=== PATIENT | male | born 1970 | race Caucasian/White ===

== ENCOUNTER 2017-09-26 17:07 | Emergency (ER) | payer SELFPAY ==
[~2017-09-26] VITALS: Ht 160 cm; Wt 73.6 kg
[2017-09-26 17:18] VITALS: Ht 160 cm; Wt 73.6 kg
--- NOTE | 2017-09-26 20:05 | ERD ---
ER Documentation Chief Complaint Chief Complaint back pain all week HPI 47-year-old male presents here to emergency department for complaints of right upper back pain radiating to the right lower back and right lower leg that started 1 week ago, patient describes the pain as sharp pain, 6/10 scale, worse upon movement. Patient did not take any medications to help with symptoms. Patient denies any incontinence. Patient denies any direct trauma in affected area. ROS All systems reviewed and are negative except as per history of present illness. Medications Home Meds Reported Medications [none] Unknown Strength No Conflict Check 09/26/17 Physical Exam Vitals Vital Signs Date Time Temp Pulse Resp B/P Pulse Ox O2 Delivery O2 Flow Rate FiO2 09/26/17 17:18 98.0 65 18 126/76 98 Physical Exam GENERAL: The patient is well developed and appropriate for usual state of health, in no apparent distress. CHEST: Clear to auscultation bilaterally. There are no rales, wheezes or rhonchi. HEART: Regular rate and rhythm. No murmurs, clicks, rubs or gallops. No S3 or S4. ABDOMEN: Soft, nontender and nondistended. Good bowel sounds. No rebound or guarding. No gross peritonitis. No gross organomegaly or masses. No Santos sign or McBurney point tenderness. BACK: No midline or flank tenderness. Spasms noted in the right paraspinal aspect of the thoracic and lumbar spine, able to do full range of motion without any restriction. EXTREMITIES: Equal pulses bilaterally. There is no peripheral clubbing, cyanosis or edema. No focal swelling or erythema. Full range of motion. Grossly neurovascularly intact. NEURO: Alert and oriented. Cranial nerves 2-12 intact. Motor strength in all 4 extremities with 5/5 strength. Sensation grossly intact. Normal speech and gait. SKIN: There is no apparent rash or petechia. The skin is warm and dry. HEMATOLOGIC AND LYMPHATIC: There is no evidence of excessive bruising or lymphedema. No gross cervical, axillary, or inguinal lymphadenopathy. Results 24 hrs Patient was called several times of the waiting area for a CT scan of the lower back and thoracic spine, patient is unable to be found, patient eloped. Patient was tried to be contacted in the phone, unable to contact. Prior to patient eloping, patient was evaluated and was stable. Procedures/MDM Medical Decision Making: Patient's pain is most likely consistent with a back strain. There is no suspicion for neurovascular compromise. Patient has intact sensation and circulation of the affected extremity and distal extremities. No incontinence, no suspicion for cauda equina syndrome, no saddle anesthesia, no symptoms of any acute bacterial infection, no symptoms of any perirectal abscesses, pilonidal cyst.There is low suspicion for septic arthritis. Patient does not have any fever. No symptoms of any aortic dissection or aortic aneurysm. Radiology exam was not done since patient eloped. Disposition: Eloped. Patient was advised to avoid heavy lifting , apply warm compresses on affected area. Patient was advised that if symptoms are worse, numbness, tingling, high fever, unable to move joint, worsening symptoms, to return to emergency department immediately. Otherwise, patient is advised to follow up with the primary care doctor in 5-7 days for reevaluation of symptoms. Disclaimer: Inadvertent spelling and grammatical errors are likely due to EHR/ dictation software use and do not reflect on the overall quality of patient care. Also, please note that the electronic time recorded on this note does not necessarily reflect the actual time of the patient encounter. Departure Diagnosis: Primary Impression: Back pain Back pain location: low back pain Chronicity: acute Back pain laterality: bilateral Sciatica presence: without sciatica Qualified Code: M54.5 - Acute bilateral low back pain without sciatica Condition: Stable DANO ALFREDO NP Sep 26, 2017 20:05
== END 2017-09-27 03:54 | disposition left against medical advice (07) ==
LOC: FTE 17:07
DX: M54.5 Low back pain (principal)
CPT/HCPCS: 99282

== ENCOUNTER 2018-11-06 10:16 | Emergency (ER) | payer MEDICAID ==
[~2018-11-06] VITALS: Ht 165.1 cm; Wt 93.3 kg
[2018-11-06 10:20] VITALS: BP 119/69; PULSE 54; RESP 18; Ht 165.1 cm; Wt 93.3 kg
[2018-11-06] MEDS ORDERED: KETOROLAC 60 MG INJ IM STA (11:23)
[2018-11-06] MEDS ORDERED: PRED20TA PO (11:26)
[2018-11-06] MEDS ORDERED: NAPR-985 PO (11:26)
[2018-11-06] MEDS ORDERED: CYCL10TA7 PO (11:26)
[2018-11-06] MEDS ORDERED: METHYLPREDNISOLONE 125 MG INJ IM ONE (11:30)
[2018-11-06] MEDS ORDERED: CYCLOBENZAPRINE 10 MG TAB PO ONE (11:30)
--- NOTE | 2018-11-06 11:30 | ERD ---
ER Documentation Chief Complaint Chief Complaint right back pain today, no injury HPI This is a 48-year-old male with a history of chronic low back pain with sciatica who presents ED complaining of flareup of low back pain that started today. Patient denies any injury or trauma to account for flareup of back pain. States that back pain is in the right low back and radiates down the right posterior leg. Denies tingling, numbness, lack sensation, bowel/bladder incontinence, saddle paresthesias, dysuria, hematuria and other symptoms. No fever no chills. No history of IV drug abuse ROS All systems reviewed and are negative except as per history of present illness. Medications Home Meds Active Scripts Prednisone* (Prednisone*) 20 Mg Tab, 60 MG PO DAILY for 4 Days, TAB Prov:EMILIANO CALVILLO PA-C 11/06/18 Naproxen* (Naprosyn*) 500 Mg Tablet, 500 MG PO BID PRN for PAIN AND/OR INFLAMMATION, #30 TAB Prov:EMILIANO CALVILLO PA-C 11/06/18 Cyclobenzaprine Hcl* (Cyclobenzaprine Hcl*) 10 Mg Tablet, 10 MG PO TID, #15 TAB Prov:EMILIANO CALVILLO PA-C 11/06/18 Reported Medications [none] Unknown Strength No Conflict Check 09/26/17 PMhx/Soc Hx Alcohol Use: No Hx Substance Use: No Hx Tobacco Use: No FmHx Family History: No diabetes Physical Exam Vitals Vital Signs Date Temp Pulse Resp B/P (MAP) Pulse Ox O2 O2 Flow FiO2 Time Delivery Rate 11/06/18 96.7 54 18 119/69 99 10:20 (86) Physical Exam Const: No acute distress Head: Atraumatic Eyes: Normal Conjunctiva ENT: Normal External Ears, Nose and Mouth. Neck: Full range of motion. No meningismus. Resp: Clear to auscultation bilaterally Cardio: Regular rate and rhythm, no murmurs Back: No thoracic or lumbar midline tenderness, there is moderate tenderness palpation along the paravertebral muscles in the right low back, positive straight leg raise on right side, no step-off deformities Ext: No cyanosis, or edema Neur: Awake and alert Psych: Normal Mood and Affect Results 24 hrs Current Medications Medications Dose Sig/Davis Start Time Status Last (Trade) Ordered Route PRN Stop Time Admin Dose Reason Admin Ketorolac 60 mg ONCE STAT 1/8/19 DC Tromethamine IM 11:23 11/06/18 (Toradol) 11:24 125 mg ONCE ONCE 11/06/18 Methylprednis IM 11:30 11/06/18 olone Sodium 11:31 Succinate (Solu-Medrol) 20 mg ONCE ONCE 11/06/18 Cyclobenzapri PO 11:30 11/06/18 ne HCl 11:31 (Flexeril) Procedures/MDM ER COURSE: The patient was given Solu-Medrol, naproxen, Toradol The medication was well tolerated and the patient reports improvement in symptoms. The patient was stable throughout ED course. I kept the patient and/or family informed of laboratory and diagnostic imaging results throughout the emergency room course. The patient was promptly evaluated and a treatment plan was devised based on H&P and other data. This plan was discussed with the patient who agreed and had no further questions or concerns prior to discharge. MEDICAL DECISION MAKIN-year-old male presents ED with flareup of low back pain with radiation down the right posterior leg times 1 day. Patient has a history of sciatica. There is a positive straight leg raise on the right side. History and physical examination other data not consistent with processing including cauda equina syndrome, cord compression, infiltrative etiology, infectious etiology, epidural abscess, fracture, obstructive pyelonephritis, abdominal aortic aneurysm. Vitals are stable and patient can be managed outpatient with close follow-up. Advised patient to follow up with primary care in the next 48 hours. return to ED with any worsening symptoms DISPOSITION PLAN: We discussed follow up with the patient's primary care doctor within 24 to 48 hours. Patient counseled regarding my diagnostic impression and care plan. Prior to discharge all questions answered. Pt agrees with treatment plan and understands strict return precautions. Precautionary instructions provided including instructions to return to the ER if not improving or for any worsening or changing symptoms or concerns. SPECIALIST FOLLOW UP RECOMMENDED: None Patient has been advised to follow up with primary care in 1-2 days. Disclaimer: Inadvertent spelling and grammatical errors are likely due to EHR/dictation software use and do not reflect on the overall quality of patient care. Also, please note that the electronic time recorded on this note does not necessarily reflect the actual time of the patient encounter. Departure Diagnosis: Primary Impression: Low back pain Chronicity: acute Back pain laterality: right Sciatica presence: with sciatica Sciatica laterality: sciatica of right side Qualified Codes: M54.41 - Lumbago with sciatica, right side Condition: Stable Patient Instructions: Back Pain W/ Sciatica Referrals: [facility] YOU HAVE RECEIVED A MEDICAL SCREENING EXAM AND THE RESULTS INDICATE THAT YOU DO NOT HAVE A CONDITION THAT REQUIRES URGENT TREATMENT IN THE EMERGENCY DEPARTMENT. FURTHER EVALUATION AND TREATMENT OF YOUR CONDITION CAN WAIT UNTIL YOU ARE SEEN IN YOUR DOCTORS OFFICE WITHIN THE NEXT 1-2 DAYS. IT IS YOUR RESPONSIBILITY TO MAKE AN APPOINTMENT FOR FOLOW-UP CARE. IF YOU HAVE A PRIMARY DOCTOR --you should call your primary doctor and schedule an appointment IF YOU DO NOT HAVE A PRIMARY DOCTOR YOU CAN CALL OUR PHYSICIAN REFERRAL HOTLINE AT IF YOU CAN NOT AFFORD TO SEE A PHYSICIAN YOU CAN CHOSE FROM THE FOLLOWING [facility] [address] [place] [address] [facility] [address] [place] [facility] [address] [facility] [address] [facility]. [facility] [address] [facility] [facility]. [address] Additional Instructions: Paciente aconseja volver a Departamento de urgencias inmediatamente para sntomas nuevos o que empeoran . Paciente aconseja posteriores con el PCP en 1-2 [place] . Paciente verbaliza la comprehensin y est de acuerdo con el tratamiento y el curso de accin. Si el paciente no tiene ninguna de atencin primaria pueden seguir con [facility] [address] [place] [address] o [facility] + [address] [address] EMILIANO CALVILLO PA-C Nov 06, 2018 11:30
== END 2018-11-06 12:00 | disposition home or self-care (01) ==
LOC: FTE 10:16
DX: M54.41 Lumbago with sciatica, right side (principal)
CPT/HCPCS: 96372; J1885; J2930; Z7502; Z7610

== ENCOUNTER 2019-01-30 17:19 | Emergency (ER) | payer MEDICAID ==
[~2019-01-30] VITALS: Ht 165.1 cm; Wt 73.3 kg
[~2019-01-30 17:19] MED LIST: CYCL10TA7 PO; NAPR-985 PO; PRED20TA PO
[2019-01-30 17:56] VITALS: Ht 165.1 cm; Wt 73.3 kg
[2019-01-30] MEDS ORDERED: LIDOCAINE 1% (MPF) 5 ML VIAL INFIL ONE (20:30)
[2019-01-30] MEDS ORDERED: IBUP-1561 PO (21:38)
--- NOTE | 2019-01-30 21:44 | ERD ---
ER Documentation Chief Complaint Chief Complaint BLISTER ON MIDDLE FINGER HPI 48-year-old male presents for a blister over his left middle finger times 2 weeks. He also states he has a growth over the right knee. He has mild tenderness over the left middle finger. Denies any fevers or chills. Denies prior similar symptoms. No significant past medical history ROS All systems reviewed and are negative except as per history of present illness. Medications Home Meds Active Scripts Ibuprofen* (Motrin*) 400 Mg Tab, 400 MG PO Q6H PRN for PAIN AND OR ELEVATED TEMP, #30 TAB Prov:MILVIA KEENAN DO 01/30/19 Prednisone* (Prednisone*) 20 Mg Tab, 60 MG PO DAILY for 4 Days, TAB Prov:EMILIANO CALVILLO PA-C 11/06/18 Naproxen* (Naprosyn*) 500 Mg Tablet, 500 MG PO BID PRN for PAIN AND/OR INFLAMMATION, #30 TAB Prov:EMILIANO CALVILLO PA-C 11/06/18 Cyclobenzaprine Hcl* (Cyclobenzaprine Hcl*) 10 Mg Tablet, 10 MG PO TID, #15 TAB Prov:EMILIANO CALVILLO PA-C 11/06/18 Reported Medications [none] Unknown Strength No Conflict Check 09/26/17 Allergies Allergies: Coded Allergies: No Known Allergy (Unverified , 11/06/18) PMhx/Soc Medical and Surgical Hx: pt denies Medical Hx, pt denies Surgical Hx History of Surgery: No Anesthesia Reaction: No Hx Neurological Disorder: No Hx Respiratory Disorders: No Hx Cardiac Disorders: No Hx Psychiatric Problems: No Hx Miscellaneous Medical Probl: No Hx Alcohol Use: No Hx Substance Use: No Hx Tobacco Use: Yes Smoking Status: Current some day smoker Physical Exam Vitals Vital Signs Date Temp Pulse Resp B/P (MAP) Pulse Ox O2 O2 Flow FiO2 Time Delivery Rate 01/30/19 97.4 56 16 136/91 99 17:56 (106) Physical Exam Const: No acute distress Resp: Clear to auscultation bilaterally Cardio: Regular rate and rhythm, no murmurs, Refills less than 2 seconds in all fingers of the left hand Abd: Soft, non tender, non distended. Normal bowel sounds Skin: No petechiae or rashes Back: No midline or flank tenderness Ext: Left middle finger distal cystic growth noted, there is no underlying erythema. There is underlying fluctuance. Neur: Awake and alert, sensation intact in all fingers of the left hand Psych: Normal Mood and Affect Results 24 hrs Current Medications Medications Dose Sig/Davis Start Time Status Last (Trade) Ordered Route PRN Stop Time Admin Dose Reason Admin Lidocaine 5 ml ONCE ONCE 01/30/19 DC (Xylocaine INFIL 20:30 01/30/19 1% (Mpf)) 20:31 Procedures/MDM Cyst incision and Drainage with irrigation by me: Location: Left middle finger Anesthesia: [Local 1% Lidocaine without epinephrine] Technique: [Irrigated. Disrupted loculations w/ instrumentation] Packing: [None] Complications: [Neurovascularly intact post procedure] 48 hour wound check. Scar minimization instructions given. Patient's skin symptoms have stabilized while they have been evaluated in the department and are appropriate for outpatient care and work up. Exam and w/u not consistent w/ sepsis, deep space infection, or foreign body. Medical Decision Making: Differential diagnosis includes but not limited to pancreatic cyst, sebaceous cyst, abscess, cellulitis Patient appeared well on physical exam. Left middle finger examination consistent with a ganglion cyst ED course: Incision and drainage was done over the cyst, see procedure note above Prescription(s): Patient given prescription for supportive medication(s). Patient advised to follow up with PCP in 1-2 days. Patient advised to return to ED for new or worsening symptoms. Patient stable on discharge from the ED. Disclaimer: Inadvertent spelling and grammatical errors are likely due to EHR/dictation software use and do not reflect on the overall quality of patient care. Also, please note that the electronic time recorded on this note does not necessarily reflect the actual time of the patient encounter. Departure Diagnosis: Primary Impression: Cyst in hand Condition: Fair Patient Instructions: Ganglion Cyst: Hand Referrals: COMM[facility] YOU HAVE RECEIVED A MEDICAL SCREENING EXAM AND THE RESULTS INDICATE THAT YOU DO NOT HAVE A CONDITION THAT REQUIRES URGENT TREATMENT IN THE EMERGENCY DEPARTMENT. FURTHER EVALUATION AND TREATMENT OF YOUR CONDITION CAN WAIT UNTIL YOU ARE SEEN IN YOUR DOCTORS OFFICE WITHIN THE NEXT 1-2 DAYS. IT IS YOUR RESPONSIBILITY TO MAKE AN APPOINTMENT FOR FOLOW-UP CARE. IF YOU HAVE A PRIMARY DOCTOR --you should call your primary doctor and schedule an appointment IF YOU DO NOT HAVE A PRIMARY DOCTOR YOU CAN CALL OUR PHYSICIAN REFERRAL HOTLINE AT IF YOU CAN NOT AFFORD TO SEE A PHYSICIAN YOU CAN CHOSE FROM THE FOLLOWING [facility] [address] [facility] [address] [facility] [facility] [address] [facility] [address] [facility]. [facility] [address] [facility] [facility] [address] Additional Instructions: Call your primary care doctor TOMORROW for an appointment during the next 1-2 days.See the doctor sooner or return here if your condition worsens before your appointment time. MILVIA KEENAN DO Jan 30, 2019 21:44
[2019-01-30 21:46] VITALS: BP 133/82; PULSE 72; RESP 16
== END 2019-01-30 21:49 | disposition home or self-care (01) ==
LOC: FTE 17:19
DX: L72.9 Follicular cyst of the skin and subcutaneous tissue, unspecified (principal)
CPT/HCPCS: 10060; Z7502; Z7610

== ENCOUNTER 2019-03-04 08:05 | Emergency (ER) | payer MEDICAID ==
[~2019-03-04] VITALS: Ht 167.6 cm; Wt 70.0 kg
[~2019-03-04 08:05] MED LIST changes: +IBUP-1561 PO
[2019-03-04 08:09] VITALS: RESP 18; Ht 167.6 cm; Wt 70.0 kg
[2019-03-04] MEDS ORDERED: CEPH-443 PO (08:24)
[2019-03-04] MEDS ORDERED: DIPHTH/TET/ACEL PERTUSS (ADULT) 0.5 ML VIAL IM* ONE (08:30)
[2019-03-04 08:36] VITALS: BP 138/57; PULSE 57
--- NOTE | 2019-03-04 08:37 | ERD ---
ER Documentation Chief Complaint Chief Complaint had left hand lac Wed now the area hurts is swollen tender to touch HPI 49-year-old male presenting with pain to the previous laceration site. She states that he had a laceration after cutting himself with a knife 1 week ago. He did not have sutures placed and healed on its own however he does have some pain surrounding the area with some redness. He is right-hand dominant. Does not recall his last tetanus shot. Denies other medical problems. NKDA. Surgical history denies. Social history denies ROS All systems reviewed and are negative except as per history of present illness. Medications Home Meds Active Scripts Cephalexin* (Keflex*) 500 Mg Capsule, 500 MG PO QID for 7 Days, CAP Prov:LATOYA JACOME PA-C 03/04/19 Ibuprofen* (Motrin*) 400 Mg Tab, 400 MG PO Q6H PRN for PAIN AND OR ELEVATED TEMP, #30 TAB Prov:MILVIA KEENAN DO 01/30/19 Prednisone* (Prednisone*) 20 Mg Tab, 60 MG PO DAILY for 4 Days, TAB Prov:EMILIANO CALVILLO PA-C 11/06/18 Naproxen* (Naprosyn*) 500 Mg Tablet, 500 MG PO BID PRN for PAIN AND/OR INFLAMMATION, #30 TAB Prov:EMILIANO CALVILLO PA-C 11/06/18 Cyclobenzaprine Hcl* (Cyclobenzaprine Hcl*) 10 Mg Tablet, 10 MG PO TID, #15 TAB Prov:EMILIANO CALVILLO PA-C 11/06/18 Reported Medications [none] Unknown Strength No Conflict Check 09/26/17 Allergies Allergies: Coded Allergies: No Known Allergy (Unverified , 11/06/18) PMhx/Soc Medical and Surgical Hx: pt denies Medical Hx, pt denies Surgical Hx History of Surgery: No Anesthesia Reaction: No Hx Neurological Disorder: No Hx Respiratory Disorders: No Hx Cardiac Disorders: No Hx Psychiatric Problems: No Hx Miscellaneous Medical Probl: No Hx Alcohol Use: No Hx Substance Use: No Hx Tobacco Use: Yes Smoking Status: Current every day smoker FmHx Family History: No diabetes, No coronary disease, No other Physical Exam Vitals Vital Signs Date Temp Pulse Resp B/P (MAP) Pulse Ox O2 O2 Flow FiO2 Time Delivery Rate 03/04/19 97.8 79 18 187/86 98 08:09 (119) Physical Exam GENERAL: The patient is well-appearing, well-nourished, in no acute distress CHEST: Clear to auscultation bilaterally. There are no rales, wheezes or rhonchi. HEART: Regular rate and rhythm. No murmurs, clicks, rubs or gallops EXTREMITIES: Equal pulses bilaterally. There is no peripheral clubbing, cyanosis or edema. No focal swelling or erythema. Full range of motion. Grossly neurovascularly intact. SKIN: Healing laceration site with mild surrounding erythema and tenderness to palpation. No fluctuance. No lymphatic streaking. No dehiscence or purulence. Results 24 hrs Current Medications Medications Dose Sig/Davis Start Time Status Last (Trade) Ordered Route PRN Stop Time Admin Dose Reason Admin Diphtheria/ 0.5 ml ONCE ONCE 03/04/19 DC 03/04/19 Tetanus/Acell IM* 08:30 03/04/19 08:29 Pertussis 08:31 (Adacel) Procedures/MDM ER course: Tetanus given ED. MDM: 49-year-old male presenting with pain to the laceration. I will treat patient prophylactically for wound infection. I have low suspicion for cellulitic infection. I have low suspicion for lymphatic infection. Patient is discharged with strict ER precautions and told to follow-up with primary care within 1 to 2 days for close evaluation. All questions answered at discharge Departure Diagnosis: Primary Impression: Skin infection Condition: Stable Patient Instructions: Wound Check, Lac F/U (Infected) Referrals: [facility] YOU HAVE RECEIVED A MEDICAL SCREENING EXAM AND THE RESULTS INDICATE THAT YOU DO NOT HAVE A CONDITION THAT REQUIRES URGENT TREATMENT IN THE EMERGENCY DEPARTMENT. FURTHER EVALUATION AND TREATMENT OF YOUR CONDITION CAN WAIT UNTIL YOU ARE SEEN IN YOUR DOCTORS OFFICE WITHIN THE NEXT 1-2 DAYS. IT IS YOUR RESPONSIBILITY TO MAKE AN APPOINTMENT FOR FOLOW-UP CARE. IF YOU HAVE A PRIMARY DOCTOR --you should call your primary doctor and schedule an appointment IF YOU DO NOT HAVE A PRIMARY DOCTOR YOU CAN CALL OUR PHYSICIAN REFERRAL HOTLINE AT IF YOU CAN NOT AFFORD TO SEE A PHYSICIAN YOU CAN CHOSE FROM THE FOLLOWING [facility] [address] [facility]. [facility] [address] [facility]. [facility] [address] [facility]. [facility] [address] [facility]. [facility] [address] [facility]. [facility]. [address] Additional Instructions: FOLLOW UP WITH YOUR PRIMARY CARE PHYSICIAN TOMORROW.Return to this facility if you are not improving as expected. LATOYA JACOME PA-C March 04, 2019 08:37
== END 2019-03-04 08:37 | disposition home or self-care (01) ==
LOC: FTE 08:05
DX: L08.9 Local infection of the skin and subcutaneous tissue, unspecified (principal); F17.210 Nicotine dependence, cigarettes, uncomplicated; Z23 Encounter for immunization
CPT/HCPCS: 90471; 90715; Z7502

== ENCOUNTER 2019-05-06 08:03 | Emergency (ER) | payer MEDICAID ==
[~2019-05-06] VITALS: Ht 154.9 cm; Wt 73.6 kg
[~2019-05-06 08:03] MED LIST changes: +CEPH-443 PO
[2019-05-06 08:07] VITALS: BP 130/77; PULSE 73; RESP 18; Ht 154.9 cm; Wt 73.6 kg
[2019-05-06] MEDS ORDERED: KETOROLAC 30 MG INJ IM STA (08:18)
[2019-05-06] MEDS ORDERED: CYCL10TA7 PO (08:27)
[2019-05-06] MEDS ORDERED: IBUP-1542 PO (08:27)
[2019-05-06] MEDS ORDERED: CYCLOBENZAPRINE 10 MG TAB PO ONE (08:30)
--- NOTE | 2019-05-06 08:30 | ERD ---
ER Documentation Chief Complaint Chief Complaint lower back pain radiating down legs x1 day HPI 49-year-old male presenting to the ED for lower back pain. Patient suffers from chronic back pain and has a history of sciatica. Patient states he went to lift his granddaughter up yesterday and today woke up with a very stiff back. Patient has been able to pass urine and stool without difficulty and denies any blood in the urine or stool. Patient denies any allergies to medications. Patient states he is received treatment in the past with a chiropractor but states the back pain has still not gotten better. Patient denies fever chills nausea vomiting. ROS All systems reviewed and are negative except as per history of present illness. Medications Home Meds Active Scripts Ibuprofen* (Motrin*) 600 Mg Tab, 600 MG PO Q6, #30 TAB Prov:KRUPA GUAJARDO PA-C 05/06/19 Cyclobenzaprine Hcl* (Cyclobenzaprine Hcl*) 10 Mg Tablet, 10 MG PO TID, #15 TAB Prov:KRUPA GUAJARDO PA-C 05/06/19 Cephalexin* (Keflex*) 500 Mg Capsule, 500 MG PO QID for 7 Days, CAP Prov:LATOYA JACOME PA-C 03/04/19 Ibuprofen* (Motrin*) 400 Mg Tab, 400 MG PO Q6H PRN for PAIN AND OR ELEVATED TEMP, #30 TAB Prov:MILVIA KEENAN DO 01/30/19 Prednisone* (Prednisone*) 20 Mg Tab, 60 MG PO DAILY for 4 Days, TAB Prov:EMILIANO CALVILLO PA-C 11/06/18 Naproxen* (Naprosyn*) 500 Mg Tablet, 500 MG PO BID PRN for PAIN AND/OR INFLAMMATION, #30 TAB Prov:EMILIANO CALVILLO PA-C 11/06/18 Cyclobenzaprine Hcl* (Cyclobenzaprine Hcl*) 10 Mg Tablet, 10 MG PO TID, #15 TAB Prov:EMILIANO CALVILLO PA-C 11/06/18 Reported Medications [none] Unknown Strength No Conflict Check 09/26/17 Allergies Allergies: Coded Allergies: No Known Allergy (Unverified , 11/06/18) PMhx/Soc History of Surgery: No Anesthesia Reaction: No Hx Neurological Disorder: No Hx Respiratory Disorders: No Hx Cardiac Disorders: No Hx Psychiatric Problems: No Hx Miscellaneous Medical Probl: No Hx Alcohol Use: No Hx Substance Use: No Hx Tobacco Use: Yes Smoking Status: Current every day smoker FmHx Family History: No diabetes, No coronary disease, No other Physical Exam Vitals Vital Signs Date Temp Pulse Resp B/P (MAP) Pulse Ox O2 O2 Flow FiO2 Time Delivery Rate 05/06/19 97.5 73 18 130/77 96 08:07 (94) Physical Exam Const: Moderate distress Resp: Clear to auscultation bilaterally Cardio: Regular rate and rhythm, no murmurs Abd: Soft, non tender, non distended. Normal bowel sounds Skin: No petechiae or rashes Back: Muscle spasm noted on palpation to left lower back. No crepitus or deformities felt on palpation no signs of bruising. Ext: Patient has good pulse motor sensation straight leg raise on the left side aggravated the pain in the left lower back. Neur: Awake and alert Psych: Normal Mood and Affect Results 24 hrs Current Medications Medications Dose Sig/Davis Start Time Status Last (Trade) Ordered Route PRN Stop Time Admin Dose Reason Admin Ketorolac 30 mg ONCE STAT 05/06/19 DC 05/06/19 Tromethamine IM 08:18 05/06/19 08:24 (Toradol) 08:19 10 mg ONCE ONCE 05/06/19 05/06/19 Cyclobenzapri PO 08:30 05/06/19 08:23 ne HCl 08:31 (Flexeril) Procedures/MDM Medications given in ER: Toradol Cyclobenzaprine Patient tolerated medication well with no adverse reactions. Patient reported improvement in pain. Medical decision making: Patient's 49-year-old male presented to ED for lower back pain x2 days. Patient has a history of back pain has been seen in the ER for the situation. Patient states he hurt his back lifting up his granddaughter he did not hear a pop he just woke up today and stated that his back felt stiff. Patient is able to ambu late without difficulty but does have pain. Patient denies any numbness or tingling in his groin region and has been able to pass stool and urine with no presence of blood. Physical exam was remarkable for a muscle spasm in his left lower back. Patient was given Toradol injection and cyclobenzaprine in the ED. On reevaluation patient appears to be doing much better I advised the patient that he may need to see an orthopedic if he still having this back pain. Patient agrees and states that he is going to see his primary care doctor this week to see if he can get a referral. At this time I have low suspicion for cauda equine syndrome, spinal fractures, epidural abscess, spinal metastases, osteomyelitis, aortic dissection, ruptured or leaking AA, DJD, sciatica, lumbar strain, muscle spasm, pyelonephritis or nephrolithiasis. Patient was advised if symptoms worsen return to ER immediately otherwise follow-up with your primary care provider in 1 to 2 days regarding this visit. All questions were answered upon discharge and patient is in agreement to the treatment plan. Prescription for home: Cyclobenzaprine Motrin I have discussed with the patient proper use and common side effects to expert with the medication . I advised the patient/family to speak with the pharmacist dispensing the medication to be advised of any potential drug interactions with other medication or supplements they may be taking. Discharge: At this time, patient is stable for discharge and outpatient management. I have instructed the patient to follow-up with his\her primary care physician in 1 to 2 days. I have discussed with the patient the possibility of needing to see a specialist for further work-up and imaging studies if symptoms persist. I have instructed the patient to promptly return to the ER for any new or worsening symptoms including increased pain, fever, nausea, vomiting, weakness or LOC. The patient and\or family expressed understanding of and agreement with this plan. All questions were answered. Home care instructions were provided. Disclaimer: Inadvertent spelling and grammatical errors are likely due to EHR\dictation software use and do not reflect on the overall quality of patient care. Also, please note that the electronic time recorded on the note does not necessarily reflect the actual time of the patient encounter. Departure Diagnosis: Primary Impression: Back pain Back pain location: low back pain Chronicity: chronic Back pain laterality: bilateral Sciatica presence: with sciatica Sciatica laterality: sciatica laterality unspecified Qualified Codes: M54.40 - Lumbago with sciatica, unspecified side; G89.29 - Other chronic pain Condition: Stable Patient Instructions: Back Pain (Acute Or Chronic), Back Pain W/ Sciatica Referrals: RENETTA VALADEZ YOON S MD [facility] YOU HAVE RECEIVED A MEDICAL SCREENING EXAM AND THE RESULTS INDICATE THAT YOU DO NOT HAVE A CONDITION THAT REQUIRES URGENT TREATMENT IN THE EMERGENCY DEPARTMENT. FURTHER EVALUATION AND TREATMENT OF YOUR CONDITION CAN WAIT UNTIL YOU ARE SEEN IN YOUR DOCTORS OFFICE WITHIN THE NEXT 1-2 DAYS. IT IS YOUR RESPONSIBILITY TO MAKE AN APPOINTMENT FOR FOLOW-UP CARE. IF YOU HAVE A PRIMARY DOCTOR --you should call your primary doctor and schedule an appointment IF YOU DO NOT HAVE A PRIMARY DOCTOR YOU CAN CALL OUR PHYSICIAN REFERRAL HOTLINE AT IF YOU CAN NOT AFFORD TO SEE A PHYSICIAN YOU CAN CHOSE FROM THE FOLLOWING [facility] [address] [facility] [address] [facility] [address] [facility] [address] [facility] [address] [facility] [facility] [address] [facility] YOU HAVE RECEIVED A MEDICAL SCREENING EXAM AND THE RESULTS INDICATE THAT YOU DO NOT HAVE A CONDITION THAT REQUIRES URGENT TREATMENT IN THE EMERGENCY DEPARTMENT. FURTHER EVALUATION AND TREATMENT OF YOUR CONDITION CAN WAIT UNTIL YOU ARE SEEN IN YOUR DOCTORS OFFICE WITHIN THE NEXT 1-2 DAYS. IT IS YOUR RESPONSIBILITY TO MAKE AN APPOINTMENT FOR FOLOW-UP CARE. IF YOU HAVE A PRIMARY DOCTOR --you should call your primary doctor and schedule and appointment IF YOU DO NOT HAVE A PRIMARY DOCTOR YOU CAN CALL OUR PHYSICIAN REFERRAL HOTLINE AT . IF YOU CAN NOT AFFORD TO SEE A PHYSICIAN YOU CAN CHOSE FROM THE FOLLOWING [facility]: [facility] [address] [place] [address] [facility] [address] [place] [address] [facility] [address] [place] [address] Additional Instructions: Call your primary care doctor TOMORROW for an appointment during the next 1-2 days.See the doctor sooner or return here if your condition worsens before your appointment time. KRUPA GUAJARDO PA-C May 06, 2019 08:30
== END 2019-05-06 08:43 | disposition home or self-care (01) ==
LOC: FTE 08:03
DX: M54.41 Lumbago with sciatica, right side (principal); F17.210 Nicotine dependence, cigarettes, uncomplicated; M54.42 Lumbago with sciatica, left side; G89.29 Other chronic pain
CPT/HCPCS: 96372; J1885; Z7502; Z7610